=== PATIENT | male | born 1965 | race Caucasian/White ===

== ENCOUNTER 2022-04-10 01:22 | Day surgery (SDC) | payer BC, OTHER, SELFPAY ==
[2022-03-31 12:06] VITALS: BMI 43.0
--- NOTE | 2022-03-31 12:11 | PC.NURSE ---
Report to the Outpatient Waiting Room, entrance under the green pavilion located off [facility], at time 0600 on date 04/10/22. Planned Procedure Time: 0730. Time changes happen often and if your time is changed the preop area will call you the afternoon before. - You and your visitor will be asked to self-screen and do not enter if you have any COVID symptoms. - Only one visitor is requested with a max of two and NO children visitors are allowed at this time. - The patient visitor may be requested to leave or wait in car when not with patient due to distancing restrictions. - A mask is optional within the hospital. Patients may have clear liquids (water, carbonated beverages, clear teas, apple juice) until 3 hours prior to surgery with a maximum of 20 ounces. - No food from midnight until time of surgery Take the following medications with a SIP of water the morning of surgery: AMLODIPINE, PROPRANOLOL Medications to discontinue per physician: VITAMIN Date to take last dose: 04/06/[address] GOULD FOR INSTRUCTIONS ABOUT ASPIRIN Please no make-up, nail estonian, hairspray, perfume, deodorant, or body powder the day of surgery. No jewelry (including any body piercings) or valuables the day of surgery, leave them at home. Please take a shower or bath the night before, or the morning of, surgery with an antibacterial soap. Wear comfortable, loose fitting clothing. - Jewelry must be removed prior to entering the operating room. Rings and piercings that are not removed may be cut off. - The hospital will not accept responsibility for valuables. - Please leave all valuables, including medications, at home the day of surgery. If you are going home after surgery, a licensed moving van driver must drive you home. - NO public transportation without another adult if you receive anesthesia. - We recommend that an adult stay with you for 24 hours following discharge. - We also recommend that you do not drive, make important decision, drink alcoholic beverages, or take any drugs that were not prescribed by your health care provider for at least 24 hours after your discharge time. Follow any additional instructions given to you from your surgeon. If you or anyone in your household have experienced Covid symptoms in the past week, please notify your surgeon or the nurse liaison at the phone number below for possible testing. Telephone instructions given to PT - SHERRY PENG and asked if any additional questions and then verbalized understanding. Patient advised to call surgeon office or pre surgery nurse liaison [phone] if any additional questions.
[2022-04-10] VITALS (10 sets, daily range): BP systolic 103–153; BP diastolic 61–93; PULSE 82–96; RESP 12–20; TEMP 36.1–36.6; O2SAT 93–100
--- NOTE | ~2022-04-10 | XR_ITS ---
XR fluoroscopy no charge DATE: 04/10/2022 10:19 INDICATION: Lumbar foraminotomy TECHNIQUE: Single lateral spot exposure of the lumbar spine 0.0363 mGym2 total dose area product COMPARISON: None FINDINGS: The tip of a surgical instrument overlies the posterior lumbar spinal canal at the L4 level . IMPRESSION: Posterior L4 lumbar spinal localization Reviewed, dictated and finalized at Location A. Reviewed, dictated and finalized at location B. RY AND WAGE ADMINISTRATOR
--- NOTE | 2022-04-10 06:57 | WPDANESEPPF ---
Anes - Initial Pre Proc Eval Procedure: Operation Date: 04/10/22 07:30 Proposed Procedures p Left L4-5 Far Lateral Foraminotomy - Santana Eller MD Date/Time: 04/10/22 06:57 Surgeon: Santana Eller MD Pre Op Diagnosis: left L4-5 foraminal stenosis Patient Data Age: 56 Gender: M Height: 1.78 m Weight: 136.2 kg Last Vital Signs Temp 36.6 C 04/10/22 06:43 Pulse 85 04/10/22 06:43 Resp 14 04/10/22 06:43 BP 131/75 04/10/22 06:43 Pulse Ox 95 04/10/22 06:43 O2 Del Method Room Air 04/10/22 06:43 Allergies Allergy/AdvReac Type Severity Reaction Status Date / Time amoxicillin [From Augmentin] Allergy Mild Vomiting Verified 03/31/22 12:03 clavulanic acid Allergy Mild Vomiting Verified 03/31/22 12:03 [From Augmentin] narcotics Allergy Mild sleep apnea Uncoded 03/31/22 12:03 Home Medications Medication Instructions Recorded Confirmed Type acetaminophen 500 mg capsule 500 mg PO Q6H PRN Pain 02/03/22 03/31/22 History albuterol sulfate 90 mcg/actuation 1 puff inhalation Q4H PRN 02/03/22 03/31/22 History aerosol inhaler Bronchospasm amlodipine 5 mg tablet 5 mg PO DAILY 02/03/22 03/31/22 History aspirin 81 mg capsule 81 mg PO DAILY 02/03/22 03/31/22 History atorvastatin 40 mg tablet 40 mg PO DAILY 02/03/22 03/31/22 History cholecalciferol (vitamin D3) 50 50 mcg PO DAILY 02/03/22 03/31/22 History mcg (2,000 unit) capsule famotidine 20 mg tablet 20 mg PO DAILY 02/03/22 03/31/22 History finasteride 5 mg tablet 5 mg PO DAILY 02/03/22 03/31/22 History fluticasone furoate 27.5 2 spray intranasal DAILY 02/03/22 03/31/22 History mcg/actuation nasal spray,suspension ondansetron HCl 4 mg tablet 4 mg PO Q8H 02/03/22 03/31/22 History propranolol 40 mg tablet 40 mg PO Q12H 02/03/22 03/31/22 History tamsulosin 0.4 mg capsule 0.4 mg PO DAILY 02/03/22 03/31/22 History Patient hx anesthesia problems: none Family hx anesthesia problems: none Results Review: All pre-operative results and documents have been reviewed as part of the pre-operative evaluation. [facility] Past Medical History Medical History (Updated 04/10/22 @ 06:57 by Nilay Levine MD) Headache Hyperlipidemia Hypertension Kidney stones Morbid obesity Surgical History Surgical History H/O rotator cuff surgery H/O shoulder surgery H/O sinus surgery H/O Spinal surgery History of carpal tunnel surgery Family History Family History Other Breast cancer Diabetes mellitus Heart disease Hypertension Thyroid disease Social History Social History Smoking status: Never smoker Alcohol intake: never Substance use: never Substance use type: does not use Living arrangements: with family Spiritual care concerns: No Anes - Eval Final PreProcedure Day of Procedure 04/10/22 06:57 Patient weight: morbidly obese Heart: regular rate and rhythm Lungs: clear to auscultation Airway: Mallampati scale class II Neurological: alert and oriented Last oral intake: >/= 8 hours ASA classification: III Emergent: no Anesthetic plan: proceed Results Review: All pre-operative results and documents have been reviewed as part of the pre-operative evaluation. Informed Consent: The patient's anesthetic plan and its attendant risks and benefits were discussed with the patient/family/POA. Questions were solicited and answers provided to the satisfaction of the patient/family/POA.
[2022-04-10] MEDS: LACTATED RINGERS 1,000 ML 30 ML IV CONT ×2 (07:13→10:02)
--- NOTE | 2022-04-10 07:40 | PM.IMHP ---
H&P: HPI History of Present Illness Date/Time: 04/10/22 07:40 Chief Complaint: Back and leg pain Narrative: Nilay is a 56-year-old gentleman with a left L4 radiculopathy related to foraminal stenosis who presents now for L4-5 far lateral foraminotomy and microdiskectomy. He has not changed appreciably since we saw him last. He does not have specific muscle group weakness or dermatomal numbness. He is not having bowel or bladder difficulties. Review of Systems Review of Systems: Patient denies shortness of breath, cough, fever, chills, nausea, vomiting, weight loss, weight gain, chest pain, dysuria. He has back and leg pain as above. Stiffness. His review of systems otherwise negative on 12 systems except as noted elsewhere. [facility] Past Medical History Medical History (Updated 04/10/22 @ 06:57 by Nilay Levine MD) Headache Hyperlipidemia Hypertension Kidney stones Morbid obesity Surgical History Surgical History H/O rotator cuff surgery H/O shoulder surgery H/O sinus surgery H/O Spinal surgery History of carpal tunnel surgery Family History Family History Other Breast cancer Diabetes mellitus Heart disease Hypertension Thyroid disease Social History Social History Smoking status: Never smoker Alcohol intake: never Substance use: never Substance use type: does not use Living arrangements: with family Spiritual care concerns: No Meds Home Medications and Allergies Home Medications Medication Instructions Recorded Confirmed Type acetaminophen 500 mg capsule 500 mg PO Q6H PRN Pain 02/03/22 03/31/22 History albuterol sulfate 90 mcg/actuation 1 puff inhalation Q4H PRN 02/03/22 03/31/22 History aerosol inhaler Bronchospasm amlodipine 5 mg tablet 5 mg PO DAILY 02/03/22 03/31/22 History aspirin 81 mg capsule 81 mg PO DAILY 02/03/22 03/31/22 History atorvastatin 40 mg tablet 40 mg PO DAILY 02/03/22 03/31/22 History cholecalciferol (vitamin D3) 50 50 mcg PO DAILY 02/03/22 03/31/22 History mcg (2,000 unit) capsule famotidine 20 mg tablet 20 mg PO DAILY 02/03/22 03/31/22 History finasteride 5 mg tablet 5 mg PO DAILY 02/03/22 03/31/22 History fluticasone furoate 27.5 2 spray intranasal DAILY 02/03/22 03/31/22 History mcg/actuation nasal spray,suspension ondansetron HCl 4 mg tablet 4 mg PO Q8H 02/03/22 03/31/22 History propranolol 40 mg tablet 40 mg PO Q12H 02/03/22 04/10/22 History tamsulosin 0.4 mg capsule 0.4 mg PO DAILY 02/03/22 03/31/22 History Allergies Allergy/AdvReac Type Severity Reaction Status Date / Time amoxicillin [From Augmentin] Allergy Mild Vomiting Verified 04/10/22 07:04 clavulanic acid Allergy Mild Vomiting Verified 04/10/22 07:04 [From Augmentin] narcotics Allergy Mild sleep apnea Uncoded 03/31/22 12:03 Vital Signs Vital Signs - 24 hr 04/10/22 06:43 Temperature 97.8 F Pulse Rate 85 Respiratory Rate 14 Blood Pressure 131/75 Pulse Oximetry 95 Oxygen Delivery Room Air Exam Narrative: Strength is normal the bilateral lower extremities to direct confrontation. Sensation is intact to light touch throughout the lower extremities. Breathing is unlabored. Regular rate. Assessment and Plan Assessment and plan (1) Foraminal stenosis of lumbar region: Code(s): M48.061 - Spinal stenosis, lumbar region without neurogenic claudication Status: Acute Plan Nilay presents for a left L4-5 far lateral foraminotomy and microdiskectomy. I described to him again that operation, its risks, potential benefits, the operative and postoperative course in detail and answered all his questions personally. He indicates understanding and elects to proceed with the operation.
--- NOTE | 2022-04-10 07:43 | WPDHPUPDATE1 ---
History and Physical Update Update Date/Time: 04/10/22 07:43 History and Physical has been reviewed, including an updated exam of the patient. There are NO changes in the patient's condition. Risks, benefits, and alternatives have been discussed and questions answered. Patient agrees to proceed with procedure.
[2022-04-10] MEDS: ceFAZolin 3 GM/D5W 100 ML 100 ML IVPB (08:09)
[2022-04-10] MEDS: LIDO 1%/EPINEPHRINE/PF 1:200,000 30 ML VIAL XX (09:00)
--- NOTE | 2022-04-10 09:49 | P.OP_ITS ---
Procedure Note - Detailed Date of Procedure 04/10/22 Pre-op Diagnosis left L4-5 foraminal stenosis Post-op Diagnosis Same Procedure Performed Left L4-5 far lateral foraminotomy Surgeon Santana Eller MD Outpatient Case Manager Tom Anesthesia General Indications Nilay is a 56-year-old gentleman with left lower extremity pain related to compression in the foramen on the L4 nerve root who presents for decompression. Description of Procedure The patient was brought to the operating room in the supine position, was sedated, intubated and placed under general anesthesia in routine fashion. He was then turned into the prone position on a Niranjan frame. The area of operation on his back was examined, marked for incision, prepped and draped in routine sterile fashion. Incision was marked over the L4-L5 spinous processes in the midline. This area was injected with 0.5% lidocaine with [id number] epinephrine. Intravenous antibiotics were given prior to incision. Incision was made with a 10 blade scalpel down to the lumbodorsal fascia. A leon bperiosteal dissection of the muscle soft tissue away from spinous process lamina at L4 on the left was performed with a subperiosteal elevator and Bovie cautery. A verifying x-rays obtained to verify the level of operation. At the L4-5 level on the left Midas-Sammy drill was used to perform a hemilaminectomy and medial facetectomy. Under microscopy the yellow ligament was lifted removed piecemeal using Kerrison punches and curved curettes. Continued bony foraminotomy was performed with Kerrison punches. The nerve root was reflected superiorly. The disc space was entered using an 11 blade scalpel. An Luis curette, curved curette and Taylor rongeur were used to push free and remove pieces of hard and soft disc herniation from beneath the nerve. These maneuvers were performed until a nerve hook could be placed out the foramen and proximally and distally beneath the nerve to confirm lack of compression. The wound was then copiously irrigated with bacitracin irrigation all bleeding stopped with bipolar and Bovie cautery and Gelfoam thrombin powder. The wound was then closed in layered fashion with 2-0 Vicryl interrupted sutures in the lumbodorsal fascia and Jose F's layer. 3-0 Vicryl buried interrupted sutures were placed in the dermis in the skin was closed with a running 4-0 Monocryl subcuticular stitch and dressed with Dermabond and a Telfa and Tegaderm dressing. The patient was then allowed to wake up in the operating room was taken to the recovery room in stable condition. There were no immediate complications of this operation. All counts were reported correct at the case. Blood loss was 50 cc. The patient was neurologically at his baseline postoperatively CPT Code: 96725 Estimated Blood Loss 50 IV Fluids 1,000 Complications None Condition Stable Disposition PACU [facility] Billing Surgery - Charge Forward: Surgery Billing
== END 2022-04-10 12:30 | disposition home or self-care (01) ==
PROVIDERS: PCP Family Medicine; Visit Provider Neurological Surgery
PROC: (CPT 63005; principal; 2022-04-10 07:30)
DX: M48.061 Spinal stenosis, lumbar region without neurogenic claudication (principal); I10 Essential (primary) hypertension; E78.5 Hyperlipidemia, unspecified; E66.01 Morbid (severe) obesity due to excess calories; Z68.41 Body mass index [BMI] 40.0-44.9, adult; Z79.51 Long term (current) use of inhaled steroids; Z79.82 Long term (current) use of aspirin
CPT/HCPCS: 63056; 36415; 86850; 86900; 86901; 99199; A9270; J0690; J1100; J1170; J2250; J2370; J2405; J2704; J2710; J3010; J7120

== ENCOUNTER 2022-05-22 09:57 | Outpatient (CLI) | payer BC, OTHER, SELFPAY ==
--- NOTE | ~2022-05-22 | XR_ITS ---
EXAMINATION: XR lumbar spine min 4V DATE: 05/22/2022 10:17 INDICATION: Low back pain TECHNIQUE: Anteroposterior, lateral, and bilateral oblique views of the lumbar spine, and cone-down l ateral view of the lumbosacral junction were obtained. COMPARISON: None. FINDINGS: There are 5 mm of retrolisthesis of L5 on S1. Alignment is otherwise normal. The lumbar ciro tebral body heights are maintained. There is mild loss of intervertebral disc space height at L5-S1. There is mild facet joint osteoarthritis of the lower lumbar spine. Calcified atherosclerosis is note d. There are stones measuring 3 mm and 4 mm in the right kidney. IMPRESSION: 1. Mild lumbar spondylosis without acute findings. Reviewed, dictated and finalized at location L. STORAGE WORKER
== END 2022-05-22 09:58 | disposition home or self-care (01) ==
PROVIDERS: PCP Family Medicine; Visit Provider Nurse Practitioner Adult Health
DX: M48.061 Spinal stenosis, lumbar region without neurogenic claudication (principal); Z98.890 Other specified postprocedural states; M47.896 Other spondylosis, lumbar region
CPT/HCPCS: 72110

== ENCOUNTER 2022-09-11 12:26 | Inpatient (IN) | payer BC, OTHER, SELFPAY ==
[2022-09-03 10:28] VITALS: BMI 43.9
--- NOTE | 2022-09-03 10:29 | PC.NURSE ---
Report to the Outpatient Waiting Room, entrance under the green pavilion located off [facility], at time 0800 on date 09/11/22. Planned Procedure Time: 1000. Time changes happen often and if your time is changed the preop area will call you the afternoon before. - You and your visitor will be asked to self-screen and do not enter if you have any COVID symptoms. - A mask is optional within the hospital at this time. Patients may have clear liquids (water, carbonated beverages, clear teas, apple juice) until 3 hours prior to surgery with a maximum of 20 ounces. - No food from midnight until time of surgery Take the following medications with a SIP of water the morning of surgery: AMLODIPINE, PROPRANOLOL DO NOT STOP ANY OF YOUR OTHER PRESCRIPTION MEDICATIONS PRIOR TO SURGERY EXCEPT THE FOLLOWING Medications to discontinue per physician: VITAMINS Date to take last dose: 09/07/[address] GOULD REGARDING ASPIRIN Please no make-up, nail armenian, hairspray, perfume, deodorant, or body powder the day of surgery. No jewelry (including any body piercings) or valuables the day of surgery, leave them at home. Please take a shower or bath the night before, or the morning of, surgery with an antibacterial soap. Wear comfortable, loose fitting clothing. - Jewelry must be removed prior to entering the operating room. Rings and piercings that are not removed may be cut off. - The hospital will not accept responsibility for valuables. - Please leave all valuables, including medications, at home the day of surgery. If you are going home after surgery, a licensed stock driver must drive you home. - NO public transportation without another adult if you receive anesthesia. - We recommend that an adult stay with you for 24 hours following discharge. - We also recommend that you do not drive, make important decision, drink alcoholic beverages, or take any drugs that were not prescribed by your health care provider for at least 24 hours after your discharge time. Follow any additional instructions given to you from your surgeon. If you or anyone in your household have experienced Covid symptoms in the past week, please notify your surgeon or the nurse liaison at the phone number below for possible testing. Telephone instructions given to PT - SHERRY PENG and asked if any additional questions and then verbalized understanding. Patient advised to call surgeon office or pre surgery nurse liaison [phone] if any additional questions.
[2022-09-11] VITALS (13 sets, daily range): BP systolic 119–150; BP diastolic 73–96; PULSE 80–99; RESP 16–24; TEMP 36.3–37.1; O2SAT 93–98
--- NOTE | ~2022-09-11 | XR_ITS ---
EXAMINATION: XR fluoroscopy no charge DATE: 09/11/2022 10:30 INDICATION: Lumbar spondylosis. TECHNIQUE: 2 intraoperative fluoroscopic lateral views of the lumbar spine were obtained. I was not p resent. Fluoroscopy exposure time was 5 minutes. COMPARISON: Lumbar spine radiographs 05/22/22 FINDINGS: There are anterior and posterior fusion procedures at L4-L5. IMPRESSION: 1. Anterior and posterior fusion procedures at L4-L5. Reviewed, dictated and finalized at location A.
[2022-09-11] MEDS: LACTATED RINGERS 1,000 ML 30 ML IV CONT ×2 (06:28→11:03)
[2022-09-11 06:38] LABS: Hematocrit 47.2 % (42.0-52.0); Hemoglobin 15.5 g/dL (14.0-18.0)
--- NOTE | 2022-09-11 07:57 | WPDANESEPPF ---
Anes - Initial Pre Proc Eval Procedure: Operation Date: 09/11/22 08:00 Proposed Procedures p L4-5 Posterior Lateral Interbody Fusion - Santana Eller MD Date/Time: 09/11/22 07:57 Surgeon: Santana Eller MD Pre Op Diagnosis: L4-5 spondylosis, facet instability Patient Data Age: 57 Gender: M Height: 1.78 m Weight: 134.8 kg Last Vital Signs Temp 97.3 F L 09/11/22 06:01 Pulse 94 09/11/22 06:01 Resp 16 09/11/22 06:01 BP 131/82 09/11/22 06:01 Pulse Ox 95 09/11/22 06:01 O2 Del Method Room Air 09/11/22 06:01 Allergies Allergy/AdvReac Type Severity Reaction Status Date / Time amoxicillin [From Augmentin] Allergy Mild Vomiting Verified 09/03/22 10:25 clavulanic acid Allergy Mild Vomiting Verified 09/03/22 10:25 [From Augmentin] narcotics AdvReac Mild sleep apnea Uncoded 09/11/22 07:13 Home Medications Medication Instructions Recorded Confirmed Type acetaminophen 500 mg capsule 500 mg PO Q6H PRN Pain 02/03/22 09/03/22 History albuterol sulfate 90 mcg/actuation 1 puff inhalation Q4H PRN 02/03/22 09/03/22 History aerosol inhaler Bronchospasm aspirin 81 mg capsule 81 mg PO DAILY 02/03/22 09/11/22 History atorvastatin 40 mg tablet 40 mg PO DAILY 02/03/22 09/11/22 History cholecalciferol (vitamin D3) 50 50 mcg PO DAILY 02/03/22 09/11/22 History mcg (2,000 unit) capsule finasteride 5 mg tablet 5 mg PO DAILY 02/03/22 09/11/22 History fluticasone furoate 27.5 2 spray intranasal DAILY 02/03/22 09/11/22 History mcg/actuation nasal spray,suspension ondansetron HCl 4 mg tablet 4 mg PO Q8H 02/03/22 09/03/22 History propranolol 40 mg tablet 40 mg PO Q12H 02/03/22 09/11/22 History tamsulosin 0.4 mg capsule 0.4 mg PO DAILY 02/03/22 09/03/22 History omeprazole 40 mg capsule,delayed 40 mg PO DAILY 05/22/22 09/11/22 History release semaglutide 0.25 mg or 0.5 mg (2 0.25 mg subcut WEEKLY 09/11/22 09/11/22 History mg/3 mL) subcutaneous pen injector Laboratory Tests 09/11/22 06:11 Hgb 15.5 g/dL (14.0-18.0) Hct 47.2 % (42.0-52.0) Blood Type A Positive Antibody Screen Negative Patient hx anesthesia problems: none Family hx anesthesia problems: none Results Review: All pre-operative results and documents have been reviewed as part of the pre-operative evaluation. [facility] Past Medical History Medical History Headache Hyperlipidemia Hypertension Kidney stones Morbid obesity Surgical History Surgical History H/O rotator cuff surgery H/O shoulder surgery H/O sinus surgery H/O Spinal surgery History of carpal tunnel surgery Status post lumbar surgery Family History Family History Other Breast cancer Diabetes mellitus Heart disease Hypertension Thyroid disease Social History Social History Smoking status: Never smoker Alcohol intake: never Substance use: never Substance use type: does not use Living arrangements: with family Spiritual care concerns: No Anes - Eval Final PreProcedure Day of Procedure 09/11/22 07:57 Patient weight: morbidly obese Airway: Mallampati scale class III ASA classification: III Anesthesia type and monitoring: general (glidescope intubation) ETT and standard monitoring Results Review: All pre-operative results and documents have been reviewed as part of the pre-operative evaluation. Informed Consent: The patient's anesthetic plan and its attendant risks and benefits were discussed with the patient/family/POA. Questions were solicited and answers provided to the satisfaction of the patient/family/POA.
--- NOTE | 2022-09-11 08:11 | PM.IMHP ---
H&P: HPI History of Present Illness Date/Time: 09/11/22 08:11 Chief Complaint: Back and leg pain Narrative: Nilay is a 57-year-old gentleman with back and leg pain related to spondylosis and listhesis at L4-5 presents for posterior lumbar interbody fusion at the level. He has not changed appreciably since we last saw him. He does not have specific muscle group weakness or dermatomal numbness. He is not having bowel or bladder difficulty. Review of Systems Review of Systems: Patient denies shortness of breath, cough, fever, chills, nausea, vomiting, weight loss, weight gain, chest pain, dysuria. He has back and leg pain as above. His review of systems otherwise negative on 12 systems. [facility] Past Medical History Medical History Headache Hyperlipidemia Hypertension Kidney stones Morbid obesity Surgical History Surgical History H/O rotator cuff surgery H/O shoulder surgery H/O sinus surgery H/O Spinal surgery History of carpal tunnel surgery Status post lumbar surgery Family History Family History Other Breast cancer Diabetes mellitus Heart disease Hypertension Thyroid disease Social History Social History Smoking status: Never smoker Alcohol intake: never Substance use: never Substance use type: does not use Living arrangements: with family Spiritual care concerns: No Meds Home Medications and Allergies Home Medications Medication Instructions Recorded Confirmed Type acetaminophen 500 mg capsule 500 mg PO Q6H PRN Pain 02/03/22 09/03/22 History albuterol sulfate 90 mcg/actuation 1 puff inhalation Q4H PRN 02/03/22 09/03/22 History aerosol inhaler Bronchospasm aspirin 81 mg capsule 81 mg PO DAILY 02/03/22 09/11/22 History atorvastatin 40 mg tablet 40 mg PO DAILY 02/03/22 09/11/22 History cholecalciferol (vitamin D3) 50 50 mcg PO DAILY 02/03/22 09/11/22 History mcg (2,000 unit) capsule finasteride 5 mg tablet 5 mg PO DAILY 02/03/22 09/11/22 History fluticasone furoate 27.5 2 spray intranasal DAILY 02/03/22 09/11/22 History mcg/actuation nasal spray,suspension ondansetron HCl 4 mg tablet 4 mg PO Q8H 02/03/22 09/03/22 History propranolol 40 mg tablet 40 mg PO Q12H 02/03/22 09/11/22 History tamsulosin 0.4 mg capsule 0.4 mg PO DAILY 02/03/22 09/03/22 History omeprazole 40 mg capsule,delayed 40 mg PO DAILY 05/22/22 09/11/22 History release semaglutide 0.25 mg or 0.5 mg (2 0.25 mg subcut WEEKLY 09/11/22 09/11/22 History mg/3 mL) subcutaneous pen injector Allergies Allergy/AdvReac Type Severity Reaction Status Date / Time amoxicillin [From Augmentin] Allergy Mild Vomiting Verified 09/03/22 10:25 clavulanic acid Allergy Mild Vomiting Verified 09/03/22 10:25 [From Augmentin] narcotics AdvReac Mild sleep apnea Uncoded 09/11/22 07:13 Vital Signs Vital Signs - 24 hr 09/11/22 06:01 Temperature 97.3 F L Pulse Rate 94 Respiratory Rate 16 Blood Pressure 131/82 Pulse Oximetry 95 Oxygen Delivery Room Air Exam Narrative: Strength is 5/5 in all muscle groups of the bilateral lower extremities. Sensation is intact to light touch throughout the lower extremities. Regular rate and rhythm Breathing is nonlabored. H&P: Results Labs Labs: Short CBC 09/11/22 Range/Units 06:11 Hgb 15.5 (14.0-18.0) g/dL Hct 47.2 (42.0-52.0) % Assessment and Plan Assessment and plan (1) Status post lumbar surgery: Code(s): Z98.890 - Other specified postprocedural states Status: Acute (2) Foraminal stenosis of lumbar region: Code(s): M48.061 - Spinal stenosis, lumbar region without neurogenic claudication Status: Acute Plan Nilay is a 57-year-old gentleman with persistent bilateral
--- NOTE | 2022-09-11 08:13 | WPDHPUPDATE1 ---
History and Physical Update Update Date/Time: 09/11/22 08:13 History and Physical has been reviewed, including an updated exam of the patient. There are NO changes in the patient's condition. Risks, benefits, and alternatives have been discussed and questions answered. Patient agrees to proceed with procedure.
[2022-09-11] MEDS: ceFAZolin 3 GM/D5W 100 ML 100 ML IVPB (08:20)
[2022-09-11] MEDS: LIDO 1%/EPINEPHRINE 1:100,000 50 ML VIAL 10 ML INFILTRATE (09:08)
--- NOTE | 2022-09-11 10:36 | SUR.OPER ---
100mL of clear yellow urine drained from ozuna catheter
--- NOTE | 2022-09-11 10:56 | W.PM.PROC2 ---
Procedure Note - Detailed Date of Procedure 09/11/22 Pre-op Diagnosis L4-5 spondylosis, facet instability Post-op Diagnosis Same Procedure Performed L4-5 complete laminectomy and bilateral facetectomy, L4-5 complete diskectomy and interbody arthrodesis utilizing titanium interbody device and local autograft, L4-5 pedicle screw instrumentation Surgeon Santana Eller MD Anesthesia General Description of Procedure Patient was brought to the operating room in the supine position, was sedated, intubated and placed under general anesthesia in routine fashion. He was then turned into the prone position on a open Fito table. The area of operation on his back was examined, marked for incision, prepped and draped in routine sterile fashion. Incision was marked over the L4-L5 spinous processes in the midline. This area was injected with 0.5% lidocaine with [id number] epinephrine. Intravenous antibiotics given prior to incision. Incision was made with a 10 blade scalpel down to the lumbodorsal fascia. Subperiosteal dissection of the muscle soft tissue away from spinous process and lamina at L4-5 was performed with a subperiosteal elevator and Bovie cautery. There was scar on the left from a previous hemilaminectomy. A verifying x-rays obtained to verify the level of operation. The spinous process at L4 was removed to the lower C rongeur. Kerrison punches, curved curette and a Leksell rongeur were used to remove the lamina in the midline and to the soft contents of the canal were encountered. A Midas Sammy drill was used to resect the pars bilaterally at L4. The inferior articular process and facet of L4 could then be removed bilaterally. These +spinous process were stripped free of soft tissue and morselized for later use as interbody autograft. Kerrison punches and curved curettes were used to define a plane with the dura and removed bone and ligament flush with the pedicles and through the foramina widely decompressing the exiting nerve roots. With the thecal sac retracted and protected the disc spaces entered bilaterally using an 11 blade scalpel. Scrapers a very sizes, curettes of various configurations, pituitary rongeur and a rasp were used to remove as much cartilaginous endplate and disc material was possible down to bleeding cortical flat surfaces on the opposing bones. The disc space was sized and a 14 x 27 mm interbody device was chosen and filled with local autograft bone. The disc space was likewise filled with local autograft bone medially and anteriorly. The interbody device was then placed with 2-3 mm countersink within the disc space from the right. Pedicle screw instrumentation was performed by observing and palpating the pedicles well a hole was made in the superior to the process abov the pedicles using a Midas Sammy drill. The pedicle was then cannulated with a pedicle probe, checked for continuity with the ball probe, tapped with a 5.5 mm tap and a 6.5 x 50 mm screws placed into each pedicle on each side. Rods were placed in the screw heads on either side and secured in position using the caps for that purpose. These were definitively tightened with a torque and anti torque device. The the verifying x-rays verified good position of the instrumentation. The wound was then copiously irrigated with bacitracin irrigation all bleeding stopped with bipolar Bovie cautery and Gelfoam thrombin powder. Medium Hemovac drain was left in the subfascial position. After the inferior right of the incision. The wound was then closed in layered fashion with 2-0 Vicryl interrupted sutures in the lumbodorsal fascia and Jose F's layer. 3-0 Vicryl buried interrupted sutures were placed in the dermis and the skin was closed with a running 4-0 Monocryl subcuticular stitch and dressed with Dermabond. The patient was allowed to wake up in the operating room and was taken to the recovery room in stable condition. There were no immediate complication
[2022-09-11] MEDS: ONDANSETRON INJ 4 MG/2 ML VIAL IV PUSH (12:25)
--- NOTE | 2022-09-11 12:51 | ADMGEN ---
This patient, Nilay Nelson, was admitted to [address] [place] [address] Room [facility]- At 1245. Patient/family oriented to hospital policies and general routines including ID bracelet, bed and alarms, visiting hours, pain management, procedures, bathroom and other care routines, personal items, smoking policy, room service/diet, and visiting hours. Information on how to activate the Rapid Response Team has been discussed. Patient/Family are encouraged to report perceived risks to care and to ask questions if they do not understand what they are told or what they should do.
[2022-09-11] MEDS: ceFAZolin 1 GM/NS 50 ML 1 GM/50 ML BAG IVPB ×2 (15:55→23:37)
[2022-09-11] MEDS: ONDANSETRON HCL ODT 4 MG TABLET PO ×2 (15:56→21:30)
[2022-09-11] MEDS: HYDROcodone/acetaminophen (*CRX) 10-325 MG TABLET 1 TAB PO ×2 (16:00→23:36)
[2022-09-11] MEDS: HYDROcodone/acetaminophen (*CRX) 5-325 MG TABLET 1 TAB PO (19:40)
[2022-09-11] MEDS: DOCUSATE SODIUM 100 MG CAPSULE PO (21:29)
[2022-09-11] MEDS: PROPRANOLOL HCL 40 MG TABLET PO (21:29)
[2022-09-12 00:05] VITALS: BP 117/67; PULSE 87; RESP 18; TEMP 36.3; O2SAT 96
[2022-09-12 04:36] VITALS: BP 122/71; PULSE 86; RESP 16; TEMP 36.4; O2SAT 94
[2022-09-12] MEDS: ONDANSETRON HCL ODT 4 MG TABLET PO ×3 (05:43→21:26)
[2022-09-12] MEDS: HYDROcodone/acetaminophen (*CRX) 5-325 MG TABLET 1 TAB PO (05:46)
[2022-09-12] MEDS: ceFAZolin 1 GM/NS 50 ML 1 GM/50 ML BAG IVPB (07:56)
[2022-09-12] MEDS: FINASTERIDE 5 MG TABLET PO (08:05)
[2022-09-12] MEDS: DOCUSATE SODIUM 100 MG CAPSULE PO ×2 (08:05→21:26)
[2022-09-12] MEDS: CHOLECALCIFEROL 1,000 UNITS TABLET 2000 UNITS PO (08:05)
[2022-09-12] MEDS: ATORVASTATIN 40 MG TABLET PO (08:05)
[2022-09-12] MEDS: PANTOPRAZOLE 40 MG TABLET PO (08:05)
[2022-09-12 08:07] VITALS: PULSE 87
[2022-09-12] MEDS: FLUTICASONE PROPIONATE 0.05% NA SPR 16 GM BTL (*BKC) 2 SPRAY NASAL (08:07)
[2022-09-12] MEDS: PROPRANOLOL HCL 40 MG TABLET PO ×2 (08:07→21:26)
[2022-09-12] MEDS: TAMSULOSIN HCL 0.4 MG CAPSULE PO (08:11)
[2022-09-12 13:55] VITALS: BP 122/70; PULSE 86; RESP 18; TEMP 36.9; O2SAT 94
[2022-09-12] MEDS: HYDROcodone/acetaminophen (*CRX) 10-325 MG TABLET 1 TAB PO ×2 (14:37→21:25)
--- NOTE | 2022-09-12 14:37 | WPDANESPN ---
Anes - Prog Note Post-Op Date/Time: 09/12/22 14:37 Cardiovascular status: normal Respiratory status: normal Airway patency: baseline Mental status: baseline Post-Op hydration status: normal Vital Signs: Last Vital Signs Temp 36.9 C 09/12/22 13:55 Pulse 86 09/12/22 13:55 Resp 18 09/12/22 13:55 BP 100/55 L 09/12/22 13:55 Pulse Ox 94 09/12/22 13:55 O2 Del Method Room Air 09/11/22 14:50 O2 Flow Rate 2 09/11/22 13:45 Pain Score (VAS): 4 I/O: Intake & Output 09/11/22 09/12/22 09/12/22 23:59 07:59 15:59 Intake Total 410 250 650 Output Total 550 725 350 Balance -140 -475 300 Laboratory Tests 09/11/22 06:11 Post-procedural complaints: none Patient Feedback: Patient satisfied with anesthetic care.
--- NOTE | 2022-09-12 16:14 | WPDNEUROSGPN ---
Progress Note: A&P Assessment and Plan (1) Foraminal stenosis of lumbar region: Code(s): M48.061 - Spinal stenosis, lumbar region without neurogenic claudication Status: Acute Plan 57 year old male s/p lumbar decompression and fusion Doing well overall D/C Matthews D/C antibiotics Anticipate D/C tomorrow with 6 week follow up with Dr. Eller Time Spent With Patient Time with patient: 15 - 25 minutes Subjective Date/time seen: 09/12/22 16:14 Interval history: PAtient notes improvement in leg pain Has been up and mobilizing with PT Drain output low Exam Narrative: Awake, alert oriented x 3 Speech CF CLAUDIA eOMI Face= TML MAEW with good strength Incision CDI Objective Data Vital Signs Vital Signs: Vital Signs - 24 hr 09/11/22 20:24 09/11/22 21:29 09/12/22 00:05 Temperature 98.8 F 97.3 F L Pulse Rate 96 96 87 Respiratory Rate 18 18 Blood Pressure 128/73 117/67 Pulse Oximetry 93 96 09/12/22 04:36 09/12/22 08:07 09/12/22 13:55 Temperature 97.6 F 98.4 F Pulse Rate 86 87 86 Respiratory Rate 16 18 Blood Pressure 122/71 122/70 Pulse Oximetry 94 94 Intake/Output Intake/Output: Intake & Output 09/09/22 09/10/22 09/11/22 09/12/22 23:59 23:59 23:59 23:59 Intake Total 3710 900 Output Total 550 1075 Balance 3160 -175 Meds/Results Medications: Active Medications Generic Name Dose Route Start Last Admin Trade Name Freq PRN Reason Stop Dose Admin Acetaminophen 500 mg 09/11/22 12:26 Acetaminophen 500 Mg Tablet PO Q6H PRN Pain Hydrocodone Bitart/Acetaminophen 1 tab 09/11/22 12:26 09/12/22 05:46 Hydrocodone/Acetaminophen (*Crx) 5-325 Mg Tablet PO 1 tab Q4H PRN Administration Mild Pain (1-3) Hydrocodone Bitart/Acetaminophen 1 tab 09/11/22 12:26 09/12/22 14:37 Hydrocodone/Acetaminophen (*Crx) 10-325 Mg Tablet PO 1 tab Q4H PRN Administration Moderate Pain (4-6) Al Hydrox/Mg Hydrox/Simethicone 20 ml 09/11/22 12:26 Mag Hydrox/Al Hydrox/Simeth 30 Ml Udc PO Q4H PRN Indigestion/Heartburn Albuterol 1 puff 09/11/22 12:26 Albuterol Sulfate (*Sp) Aerosol 1 Puff INHALATION Q4H PRN Bronchospasm Atorvastatin Calcium 40 mg 09/12/22 09:00 09/12/22 08:05 Atorvastatin 40 Mg Tablet PO 40 mg DAILY [facility] Administration Bisacodyl 10 mg 09/11/22 12:26 Bisacodyl 10 Mg Suppository RECTAL DAILY PRN Constipation Cyclobenzaprine HCl 10 mg 09/11/22 12:26 Cyclobenzaprine Hcl 10 Mg Tablet PO TID PRN Muscle Spasms Docusate Sodium 100 mg 09/11/22 21:00 09/12/22 08:05 Docusate Sodium 100 Mg Capsule PO 100 mg Q12HR [facility] Administration Finasteride 5 mg 09/12/22 09:00 09/12/22 08:05 Finasteride 5 Mg Tablet PO 5 mg DAILY [facility] Administration Fluticasone Propionate 2 spray 09/12/22 09:00 09/12/22 08:07 Fluticasone Propionate 0.05% Na Spr 16 Gm Btl (*Bkc) NASAL 10/12/22 08:59 2 spray DAILY [facility] Administration Hydromorphone HCl 0.5 mg 09/11/22 12:26 Hydromorphone Hcl Inj (*Crx) 1 Mg/Ml Syr IV PUSH Q2H PRN Pain Rated 7-10 Cefazolin Sodium 1 gm in 50 mls @ 100 mls/hr 09/11/22 16:00 09/12/22 08:26 Ancef 1 Gm/Ns 50 Ml IVPB Infused Q8H [facility] Infusion Potassium Chloride/Dextrose/Sod Cl 1,000 mls @ 100 mls/hr 09/11/22 12:26 09/12/22 07:45 Kcl 20 Meq/D5/0.45% Sod Chl IV CONT Not Given .Q10H [facility] Miscellaneous Information 0 each 09/11/22 00:01 Semaglutide Is Nonformulary - Can Patient Bring From Home? XX 10/11/22 00:00 CLARIFY [facility] Non-Formulary Medication 0.25 mg 09/18/22 09:00 Semaglutide SUB-Q 10/18/22 08:59 WEEKLY [facility] Ondansetron HCl 4 mg 09/11/22 14:00 09/12/22 14:44 Ondansetron Hcl Odt 4 Mg Tablet PO 4 mg Q8HR [facility] Administration Ondansetron HCl 4 mg 09/11/22 12:26 Ondansetron Inj 4 Mg/2 Ml Vial IV PUSH Q8H PRN Nausea And Vomiting Pantoprazole Sodium 40 mg
[2022-09-12 19:39] VITALS: BP 131/68; PULSE 93; RESP 22; TEMP 36.2; O2SAT 92
[2022-09-12 21:26] VITALS: PULSE 68
[2022-09-13 04:24] VITALS: BP 132/77; PULSE 89; RESP 22; TEMP 36.6; O2SAT 95
[2022-09-13] MEDS: HYDROcodone/acetaminophen (*CRX) 10-325 MG TABLET 1 TAB PO ×2 (06:03→10:39)
[2022-09-13] MEDS: ONDANSETRON HCL ODT 4 MG TABLET PO (06:03)
[2022-09-13 08:50] VITALS: PULSE 93
[2022-09-13] MEDS: PROPRANOLOL HCL 40 MG TABLET PO (08:50)
[2022-09-13] MEDS: DOCUSATE SODIUM 100 MG CAPSULE PO (08:51)
[2022-09-13] MEDS: ATORVASTATIN 40 MG TABLET PO (08:51)
[2022-09-13] MEDS: CHOLECALCIFEROL 1,000 UNITS TABLET 2000 UNITS PO (08:51)
[2022-09-13] MEDS: TAMSULOSIN HCL 0.4 MG CAPSULE PO (08:51)
[2022-09-13] MEDS: FINASTERIDE 5 MG TABLET PO (08:51)
[2022-09-13] MEDS: FLUTICASONE PROPIONATE 0.05% NA SPR 16 GM BTL (*BKC) 2 SPRAY NASAL (08:52)
--- NOTE | 2022-09-13 12:09 | PC.NURSE ---
Protonix not in patients med drawer during med pass. Showroom Manager called pharmacy and medication was not delivered prior to before discharge. Patient informed and will take at home.
--- NOTE | 2022-09-13 12:48 | PCOTNOTE ---
Pt was with nursing going over discharge paperwork when therapist entered room. Pt and spouse had no questions at this time and declined needing to participate in any OT right now. Pt encouraged to participate in as much functional mobility as possible in order to continue/maintain strengthening and independence with all daily occupations.
--- NOTE | 2022-09-16 10:23 | PM.DS ---
DS: Admitting Diagnosis Discharge Date 09/13/22 Admitting Diagnosis lumbar spondylosis DS: Discharge Diagnosis Discharge Diagnosis (1) Foraminal stenosis of lumbar region: Code(s): M48.061 - Spinal stenosis, lumbar region without neurogenic claudication Status: Acute Plan Patient admitted to hospital for elective lumbar fusion. Stable for discharge to home on POD#2 DS: Summary Hospital Course Reason for hospitalization: elective lumbar surgery Hospital Course: Patient admitted to hospital for lumbar fusion at L4-5. Tolerated surgery well and began to mobilize on POD#1 Pain controlled and ultimately patinet stable for d/c to home on POD#2 Time spent discussing smoking cessation with patient: 3 to 10 minutes Status at Discharge Cognitive/behavioral status at discharge: at baseline Functional status at discharge: independent ambulation Overall status at discharge: patient is progressing back to baseline Time Spent with Patient Time attestation: Total time spent providing and/or coordinating discharge services: Time spent: Less than 30 minutes Exam Narrative: Awake alert, oriented x 3 Speech CF CLAUDIA EOMI Face= TML MAEW with good strength Incision CDI Discharge Plan Discharge Attending physician on discharge: Santana Eller Consulting providers: Aly [place]; Zarina Joseph; Aditya Edgar V. Discharging Clinician: Hue Jones Anticipated Discharge Date/Time: 09/13/22 12:20 Patient Disposition: Home, Self-Care Activity: may shower Diet: regular Wound Care Instructions: incision open to air Patient Instructions: Antibiotic Form Stand Alone Forms: General Discharge Information Follow-up/Referrals: Santana Eller MD [Physician] - 6 Weeks Discharge Medications: New hydrocodone-acetaminophen 5-325 mg tablet 1 tablet PO Q6H PRN (Reason: pain) Qty: 30 0RF cyclobenzaprine 10 mg tablet 10 mg PO TID PRN (Reason: muscle spasm) Qty: 30 0RF Continued omeprazole 40 mg capsule,delayed release(DR/EC) 40 mg PO DAILY acetaminophen 500 mg capsule 500 mg PO Q6H PRN (Reason: Pain) atorvastatin 40 mg tablet 40 mg PO DAILY finasteride 5 mg tablet 5 mg PO DAILY fluticasone furoate 27.5 mcg/actuation spray,suspension 2 spray intranasal DAILY Rx Instructions: into each nostril ondansetron HCl 4 mg tablet 4 mg PO Q8H propranolol 40 mg tablet 40 mg PO Q12H tamsulosin 0.4 mg capsule 0.4 mg PO DAILY albuterol sulfate 90 mcg/actuation HFA aerosol inhaler 1 puff inhalation Q4H PRN (Reason: Bronchospasm) cholecalciferol (vitamin D3) 50 mcg (2,000 unit) capsule 50 mcg PO DAILY semaglutide 0.25 mg or 0.5 mg (2 mg/3 mL) Pen Injector 0.25 mg SUBCUT WEEKLY Rx Instructions: for 4 weeks ON THURSDAY Discontinued aspirin 81 mg capsule 81 mg PO DAILY Hold Instructions: Resume on 04/17/22. Date of admission: 09/11/22 12:26 Primary Care Provider: Karly,Guanakito Valiente Admitting Provider: Santana Eller Attending physician on admission: Hue Jones Condition: Stable
== END 2022-09-13 12:00 | disposition home or self-care (01) | DRG 460 ==
LOC: ANH3MED 09-12 16:23 → ANHSURGERY 09-15 11:35 → ANH3MED 09-15 11:36
PROVIDERS: Anesthesiology; Admitting Provider Neurological Surgery; PCP Family Medicine; Visit Provider Neurological Surgery
PROC: 0SG00AJ Fusion of Lumbar Vertebral Joint with Interbody Fusion Device, Posterior Approach, Anterior Column, Open Approach (ICD-10-PCS; CPT 22612; principal; 2022-09-11 08:00)
DX: M43.16 Spondylolisthesis, lumbar region (principal); M48.061 Spinal stenosis, lumbar region without neurogenic claudication; E78.5 Hyperlipidemia, unspecified; I10 Essential (primary) hypertension; Z87.442 Personal history of urinary calculi; Z79.82 Long term (current) use of aspirin
CPT/HCPCS: 36415; 85014; 85018; 86850; 86900; 86901; 97161; 97165; 97530; 97535; 99199; A9270; C1713; J0330; J0690; J1100; J1170; J2250; J2405; J2704; J3010; J7120

== ENCOUNTER 2022-10-27 11:58 | Outpatient (CLI) | payer BC, OTHER, SELFPAY ==
--- NOTE | ~2022-10-27 | XR_ITS ---
Lumbosacral Spine: AP and lateral views Clinical History: Pain COMPARISON: 05/22/2022 Findings: Patient is status post interval posterior fusion from L4 to L5 with bilateral rods and neumann spedicular screws present, as well as L4-L5 interbody fusion device. L4 laminectomy noted. There is m oderate facet arthropathy at L5-S1. The intervertebral disc spaces are preserved. The sacroiliac ankit nts are normally outlined. Impression: Status post fusion at the L4-L5 level, as detailed above. Moderate facet arthropathy at L5-S1. Reviewed, dictated and finalized at location M. Impression: Status post fusion at the L4-L5 level, as detailed above. Moderate facet arthropathy at L5-S1.
== END 2022-10-27 11:59 | disposition home or self-care (01) ==
LOC: ANHIMG 12:01
PROVIDERS: PCP Family Medicine; Visit Provider Neurological Surgery
DX: M48.061 Spinal stenosis, lumbar region without neurogenic claudication (principal); Z98.890 Other specified postprocedural states; Z98.1 Arthrodesis status
CPT/HCPCS: 72100